=== PATIENT | female | born 1950 | race Asian ===

== ENCOUNTER 2016-04-06 13:09 | Emergency (ER) | payer MEDICARE, OTHER ==
--- NOTE | 2016-04-06 13:17 | ER Document Report ---
ED Medical Screen (RME) - General Stated Complaint: HEAD INJURY Mode of Arrival: Wheelchair Information source: Patient Notes: Patient states she was trying to fix her bed and was standing on it, jumped and fell off of her bed. Pt hit head on a dresser top. No loss of consciousness, no nausea or vomiting. I have greeted and performed a rapid initial assessment of this patient. A comprehensive ED assessment and evaluation of the patient, analysis of test results and completion of the medical decision making process will be conducted by additional ED providers. TRAVEL OUTSIDE OF THE [place] IN LAST 30 DAYS: No Physical Exam - Vital signs Vitals: Temp Pulse Resp BP Pulse Ox 97.6 F 88 16 168/78 H 99 04/06/16 13:12 04/06/16 13:12 04/06/16 13:12 04/06/16 13:12 04/06/16 13:12 - Skin Skin irregularity: Laceration - Clotted blood over right parietal scalp laceration Course - Vital Signs Vital signs: Temp Pulse Resp BP Pulse Ox 97.6 F 88 16 168/78 H 99 04/06/16 13:12 04/06/16 13:12 04/06/16 13:12 04/06/16 13:12 04/06/16 13:12
[2016-04-06] MEDS ORDERED: LIDOCAINE 1% INJ-PF (10 MG/ML) 30 ML SDV INJ ONE (16:10)
[2016-04-06] MEDS ORDERED: ACETAMINOPHEN 325 MG TABLET PO ONE (16:11)
[2016-04-06] MEDS ORDERED: ONDANSETRON HCL 8 MG TABLET PO ONE (16:11)
[2016-04-06] MEDS ORDERED: DIPH/PERTUSS(ACELL)/TETANUS VAC/PF 0.5 ML SYR (>=10YO) IM ONE (16:21)
--- NOTE | 2016-04-06 17:07 | ER Document Report ---
ED Wound - General Chief Complaint: Laceration Stated Complaint: HEAD INJURY Mode of Arrival: Wheelchair Notes: Patient is a 65-year-old female who is new onset early Alzheimer's who was making the bed and she states she hit her head on a dresser.. She denies any loss of consciousness, emesis and only now admits to headache. This was an unwitnessed event however. Otherwise her states she has a history of diabetes and high blood pressure. She does have a cut on the back of her head. TRAVEL OUTSIDE OF THE [place] IN LAST 30 DAYS: No - Related Data Allergies/Adverse Reactions: No Known Allergies Allergy (Verified 04/06/16 13:14) Past Medical History - General Information source: Patient - Social History Smoking Status: Unknown if Ever Smoked Chew tobacco use (# tins/day): No Frequency of alcohol use: None Drug Abuse: None Family History: Reviewed & Not Pertinent Patient has suicidal ideation: No Patient has homicidal ideation: No Renal/ Medical History: Denies: Hx Peritoneal Dialysis - Immunizations Hx Diphtheria, Pertussis, Tetanus Vaccination: Yes Review of Systems - Review of Systems Constitutional: No symptoms reported EENT: No symptoms reported Cardiovascular: No symptoms reported Respiratory: No symptoms reported Gastrointestinal: No symptoms reported Genitourinary: No symptoms reported Female Genitourinary: No symptoms reported Musculoskeletal: No symptoms reported Skin: See HPI Hematologic/Lymphatic: No symptoms reported Neurological/Psychological: See HPI Physical Exam - Vital signs Vitals: Temp Pulse Resp BP Pulse Ox 97.6 F 88 16 168/78 H 99 04/06/16 13:12 04/06/16 13:12 04/06/16 13:12 04/06/16 13:12 04/06/16 13:12 - General General appearance: Appears well In distress: None - HEENT Head: Normocephalic, Open wounds - 5cm deep lac, linear Eyes: Normal Conjunctiva: Normal Extraocular movements intact: Yes Pupils: PERRL Neck: Normal - Respiratory Respiratory status: No respiratory distress Chest status: Nontender Breath sounds: Normal Chest palpation: Normal - Cardiovascular Rhythm: Regular Heart sounds: Normal auscultation Pulses: Normal: Radial, Dorsalis pedis Normal capillary refill: Yes - Extremities General upper extremity: Normal inspection, Nontender, Normal color, Normal ROM , Normal strength, Normal temperature General lower extremity: Normal inspection, Nontender, Normal color, Normal ROM , Normal strength, Normal temperature, Normal weight bearing - Neurological Neuro grossly intact: Yes Cognition: Normal Orientation: AAOx4 April Coma Scale Eye Opening: Spontaneous Clyde Coma Scale Verbal: Oriented April Coma Scale Motor: Obeys Commands Clyde Coma Scale Total: 15 Motor strength normal: LUE, RUE, LLE, RLE Sensory: Normal - Skin Skin Temperature: Warm Skin Moisture: Dry Skin Color: Normal Skin Turgor: Elastic Skin irregularity: Laceration Location of irregularity: Scalp Character of irregularity: Linear Irregularity with: Tenderness Course - Re-evaluation Re-evalutation: 04/06/16 17:04 Patient is a 65-year-old female with early onset Alzheimer's. Unwitnessed head injury at the house today she denies any loss of consciousness. states that she did come him as soon as she had her head and they came to emergency department she's been her normal self. CT of the head does not show any fracture or bleed. Patient is otherwise alert and oriented. Lack was closed with 4 vicky can be taken up by PCP. - Vital Signs Vital signs: Temp Pulse Resp BP Pulse Ox 97.6 F 88 16 168/78 H 99 04/06/16 13:12 04/06/16 13:12 04/06/16 13:12 04/06/16 13:12 04/06/16 13:12 - Diagnostic Test Radiology reviewed: Image reviewed, Reports reviewed Procedures - Laceration/Wound Repair Head Wound length (cm): 5 Wound's Depth, Shape: Superficial, Linear Laceration pre-procedure: Sterile PPE donned, Betadine prep applied Wound explored: Clean, No foreign body removed Irrigated w/ Saline (mLs): 20 Wound Debrided: Minimal Wound Repaired With: Vicky Number of Sutures: 4 Layer Closure?: No Complications: No Discharge - Discharge Clinical Impression: Head injury Qualifiers: Encounter type: initial encounter Qualified Code(s): S09.90XA - Unspecified injury of head, initial encounter Condition: Good Disposition: HOME, SELF-CARE Instructions: Soap Cleansing ([facility]), Tetanus Immunization Given ([facility]), Prophylactic Antibiotic ([facility]), Laceration Care ([facility]) Additional Instructions: You need to follow up with your physician in -10 for staple removal Prescriptions: Cephalexin Monohydrate [Keflex 500 mg Capsule] 500 mg PO BID 7 Days Forms: Elevated Blood Pressure
[2016-04-06] MEDS ORDERED: CEPHALEXIN 500 MG CAPSULE PO ONE (17:10)
[2016-04-06 17:17] VITALS: BP 150/78
== END 2016-04-06 17:17 | disposition home or self-care (01) ==
LOC: ER 13:09
PROC: 0HQ0XZZ Repair Scalp Skin, External Approach (ICD-10-PCS; principal; 2016-04-06)
DX: S01.01XA Laceration without foreign body of scalp, initial encounter (principal); W22.03XA Walked into furniture, initial encounter; Y93.E9 Activity, other interior property and clothing maintenance; Y92.003 Bedroom of unspecified non-institutional (private) residence as the place of occurrence of the external cause; R51 Headache; E11.9 Type 2 diabetes mellitus without complications; I10 Essential (primary) hypertension; G30.0 Alzheimer's disease with early onset; F02.80 Dementia in other diseases classified elsewhere, unspecified severity, without behavioral disturbance, psychotic disturbance, mood disturbance, and anxiety
CPT/HCPCS: 99283; 90471; 70450; 90715; 12002; A9270 ×3; J3490; S0119

== ENCOUNTER 2017-01-16 03:38 | Emergency (ER) | payer MEDICARE, OTHER ==
--- NOTE | 2017-01-16 04:22 | ER Document Report ---
ED General - General Chief Complaint: Fall Injury Stated Complaint: FALL/HEAD INJURY Time Seen by Provider: 01/16/17 04:09 TRAVEL OUTSIDE OF THE [place] IN LAST 30 DAYS: No - HPI Notes: Pt is a 66yo female who presents to the ED with a scalp laceration s/p fall while at home about 1 hour ago. Pt states that she was walking to the kitchen when she lost her balance and fell backwards hitting her head. Pt believes that she hit her head off of the floor, but could have hit something on the wall on her way down. Pt does not believe she had any LOC, but is not 100% sure and it was unwitnessed. Pt does have a h/o ?alzheimer's vs other dementia- related disease. She also has a h/o DM-2 (diet controlled) and HTN. Spouse states that she came to him and woke him up thereafter. Spouse states that she has been unsteady with her gait for a "while" and has been seeing her PCM for this issue. They are getting a referral to see a neurologist in [place] currently. Pt has been evaluated for vertigo as well by her PCM this week. Pt states that she only has pain to the site of the laceration and otherwise feels well. No other pain. Spouse notes that she is at baseline for her mentation, speech, behavior, and gait. Denies any fever, neck pain, changes in vision/ speech/mentation/hearing, URI, sore throat, chest pain, palpitations, syncope, cough, shortness of breath, wheeze, dyspnea, abdominal pain, nausea/vomiting/ diarrhea, urinary retention, dysuria, hematuria, loss of control of bowel or bladder, numbness/tingling, saddle anesthesia, muscle paralysis/weakness, or rash. tetanus utd. - Related Data Allergies/Adverse Reactions: No Known Allergies Allergy (Verified 01/16/17 04:28) Past Medical History - Social History Smoking Status: Never Smoker Family History: Reviewed & Not Pertinent Renal/ Medical History: Denies: Hx Peritoneal Dialysis - Immunizations Hx Diphtheria, Pertussis, Tetanus Vaccination: Yes Review of Systems - Review of Systems Notes: REVIEW OF SYSTEMS: CONSTITUTIONAL : Denies fever, chills, or sweats. Denies recent illness. EENT: Denies eye, ear, throat, or mouth pain or symptoms. Denies nasal or sinus congestion or discharge. Denies throat, tongue, or mouth swelling or difficulty swallowing. CARDIOVASCULAR: Denies chest pain. Denies palpitations or racing or irregular heart beat. Denies ankle edema. RESPIRATORY: Denies cough, cold, or chest congestion. Denies shortness of breath, difficulty breathing, or wheezing. GASTROINTESTINAL: Denies abdominal pain or distention. Denies nausea, vomiting , or diarrhea. GENITOURINARY: Denies difficulty urinating, painful urination, burning, frequency, blood in urine, or discharge. MUSCULOSKELETAL: Denies back or neck pain or stiffness. Denies joint pain or swelling. SKIN: Denies rash, lesions or sores. NEUROLOGICAL: see hpi. Denies weakness or paralysis or loss of use of either side. Denies sensory loss, numbness, or tingling. Denies seizures. PSYCHIATRIC: Denies anxiety or stress. Denies depression, suicidal ideation, or homicidal ideation. ALL OTHER SYSTEMS REVIEWED AND NEGATIVE. Dictation was performed using [employer] voice recognition software Physical Exam - Vital signs Vitals: Temp Pulse Resp BP Pulse Ox 99.1 F 97 16 164/100 H 99 01/16/17 03:51 01/16/17 03:51 01/16/17 03:51 01/16/17 03:51 01/16/17 03:51 Notes: PHYSICAL EXAMINATION: GENERAL: Well-appearing, well-nourished and in no acute distress. A&Ox4 HEAD: There is a 0.5cm scalp laceration to the rt superior occipital area. Bleeding controlled. EYES: Pupils equal round and reactive to light, extraocular movements intact, sclera anicteric, conjunctiva are normal. No raccoon eyes/entrapment ENT: EAC clear b/l. TM's intact b/l without erythema, fluid, or perforation. Nares patent and without discharge. oropharynx clear without exudates. No tonsilar hypertrophy or erythema. Moist mucous membranes. No sinus tenderness. No hemotympanum/CSF discharge. NECK: Normal range of motion, supple without lymphadenopathy. No rigidity. No midline tenderness. Spurling negative. NEXUS negative. Chest: No flail chest. equal rise/fall. Non-tender LUNGS: Breath sounds clear to auscultation bilaterally and equal. No wheezes rales or rhonchi. HEART: Regular rate and rhythm without murmurs, rubs, gallops. ABDOMEN: Soft, nontender, nondistended abdomen. No guarding, no rebound. No masses appreciated. Normal bowel sounds present. No CVA tenderness bilaterally. Musculoskeletal: Ext b/l: FROM to passive/active. Strength 5+/5. No deficits noted. No bony tenderness of extremities. Back: FROM to passive/active. Strength 5+/5. No vertebral point tenderness, stepoffs, or deformities. No other bony tenderness or ecchymosis. SLR negative b/l. Extremities: No cyanosis, clubbing, or edema b/l. Peripheral pulses 2+. Capillary refill less than 2 seconds. NEUROLOGICAL: NIH 0. MMSE intact. Cranial nerves grossly intact. Normal speech, ataxic/unsteady gait. Normal sensory, motor exams. Reflexes 2+ b/l. HAWA's negative. Pronator drift negative. PSYCH: Normal mood, normal affect. SKIN: Warm, Dry, normal turgor, no rashes or lesions noted. Course - Re-evaluation Re-evalutation: 01/16/17 05:19 Patient is an afebrile, well-hydrated, 66-year-old female who presents ED with a scalp laceration status post fall. Vitals are stable. PE is markable for any focal neurological deficits. Accucheck was 177. Head CT was negative. MMSE intact. NIH 0. Wound was thoroughly irrigated and cleansed. 2 vicky were placed and wound edges were approximated appropriately. Wound dressing placed and wound instructions were reviewed with the pt/spouse. Conservative measures otherwise for symptoms with close monitoring. Low suspicion for any acute glaucoma, temporal arteritis, meningitis, intracranial hemorrhage, ischemic stroke, or fracture at this time. Patient/spouse are aware that her condition can change from initial presentation and that they need to monitor symptoms closely for any acute changes. Recheck with your PCM in 3-5 days. Return to the ED with any worsening/concerning symptoms otherwise as reviewed in discharge. Patient/spouse are in agreement. - Vital Signs Vital signs: Temp Pulse Resp BP Pulse Ox 99.1 F 81 16 148/82 H 100 01/16/17 03:51 01/16/17 05:14 01/16/17 05:14 01/16/17 05:14 01/16/17 05:14 - Laboratory Laboratory results interpreted by me: 01/16/17 04:14 POC Glucose 177 H Procedures - Laceration/Wound Repair Left Head Time completed: 04:50 Wound length (cm): 1.7 Wound's Depth, Shape: Superficial, Linear. No: Into muscle, Irregular, Flap Laceration pre-procedure: Sterile PPE donned, Sterile drapes applied, Other - chlorhexadine Wound explored: Clean, No foreign body removed Irrigated w/ Saline (mLs): 60 Wound Debrided: none Wound Repaired With: Vicky Number of Sutures: 2 Layer Closure?: No Post-procedure wound care: Sterile dressing applied Post-procedure NV exam normal: Yes Complications: No Discharge - Discharge Clinical Impression: Scalp laceration Qualifiers: Encounter type: initial encounter Qualified Code(s): S01.01XA - Laceration without foreign body of scalp, initial encounter Condition: Stable Disposition: HOME, SELF-CARE Instructions: Antibiotic Ointment Protection ([facility]), Laceration Care ([facility]), Soap Cleansing ([facility]) Additional Instructions: Do not shower or bathe for 24 hours. After 24 hours you may shower but no submersion of the wound under water. You may apply a non-stick gauze dressing if needed if the wound is draining. You may leave open to the air if it is not draining. See your PCM in 2-3 days for a recheck. Monitor for any signs of worsening pain or redness, purulent drainage, streaks, and/or fever. Return to the ED if noticing any of the above symptoms or as needed. Take medications as directed. Your sutures will need to be removed in 10 days. Return to the ED with any worsening symptoms and/or development of fever, headache, chest pain, palpitations, syncope, shortness of breath, trouble breathing, abdominal pain, n/v/d, blood in stool/urine, loss of control of bowel /bladder, urinary retention, muscle weakness/paralysis, saddle anesthesia, numbness/tingling, or other worsening symptoms that are concerning to you. Forms: Elevated Blood Pressure Referrals: JUAN LUND MD [Primary Care Provider] - Follow up in 3-5 days
--- NOTE | 2017-01-16 04:48 | RADIOLOGY REPORT (SQ) ---
EXAM DESCRIPTION: CT HEAD WITHOUT COMPLETED DATE/TIME: 01/16/2017 4:25 am REASON FOR STUDY: fall, head injury COMPARISON: CT head 04/06/2016, 12/08/2006. TECHNIQUE: Axial images acquired through the brain without intravenous contrast. Images reviewed wi th bone, brain and subdural windows. Images stored on PACS. All CT scanners at this facility use dose modulation, iterative reconstruction, and/or weight based d osing when appropriate to reduce radiation dose to as low as reasonably achievable (ALARA). [facility]: Dose Right [facility]: CareDose [facility]: Dose Right [facility]: Teradose 4D [facility]: [email or web address] RADIATION DOSE: mGy. LIMITATIONS: There is streak artifact from the patient's dental hardware, orthopedic hardware at the cervical spine and patient's earrings. FINDINGS: VENTRICLES: Prominent. CEREBRUM: No mass effect. No hemorrhage. No midline shift. Areas of low density in the white matte r most likely due to chronic micro-vascular ischemic change. No evidence for acute territorial infar ction. CEREBELLUM: No hemorrhage. No alteration of density. No evidence for acute infarction. EXTRAAXIAL SPACES: Mild age-related involutional change. No fluid collections. ORBITS AND GLOBE: Symmetrical contour of the globes. CALVARIUM: No depressed fracture. PARANASAL SINUSES: No air-fluid level. SOFT TISSUES: No hematoma. IMPRESSION: No acute intracranial hemorrhage or acute territorial infarct. Chronic changes of atrop hy and microvascular ischemia. EVIDENCE OF ACUTE STROKE: NO. TECHNICAL DOCUMENTATION: JOB ID: [id number] [facility] Quality ID # [id number]: Final reports with documentation of one or more dose reduction techniques (e.g., Au tomated exposure control, adjustment of the mA and/or kV according to patient size, use of iterative reconstruction technique) 2010 [employer]- All Rights Reserved
[2017-01-16] MEDS ORDERED: ACETAMINOPHEN 325 MG TABLET PO ONE (04:55)
[2017-01-16 05:15] VITALS: BP 148/82
== END 2017-01-16 05:15 | disposition home or self-care (01) ==
LOC: ER 03:38
DX: S01.01XA Laceration without foreign body of scalp, initial encounter (principal); W19.XXXA Unspecified fall, initial encounter; Y93.89 Activity, other specified; Y92.009 Unspecified place in unspecified non-institutional (private) residence as the place of occurrence of the external cause; R26.81 Unsteadiness on feet; E11.9 Type 2 diabetes mellitus without complications; I10 Essential (primary) hypertension
CPT/HCPCS: 70450; 82962; 99284

== ENCOUNTER 2017-01-19 18:02 | Emergency (ER) | payer MEDICARE, OTHER ==
--- NOTE | 2017-01-19 19:42 | ER Document Report ---
ED Medical Screen (RME) - General Chief Complaint: Head Injury Stated Complaint: FALL HEAD INJURY Time Seen by Provider: 01/19/17 19:35 Notes: 66 year old female here for dizziness and fall. She fell [employer], fell back and hit her head on a vaccum shield cleaner. Family states she has had progressive confusion for 1 year, worse over the past week, and now she is giving confused statements about her fall. She follows directions but when asked where she is right now she states she doesn't know. No blood thinner use. Had many recent falls. Family states she seems more dizzy than usual, is not responding to treatments, and they are frustrated with her decline. TRAVEL OUTSIDE OF THE [place] IN LAST 30 DAYS: No - Related Data Allergies/Adverse Reactions: No Known Allergies Allergy (Verified 01/19/17 19:38) Past Medical History Renal/ Medical History: Denies: Hx Peritoneal Dialysis - Immunizations Hx Diphtheria, Pertussis, Tetanus Vaccination: Yes Physical Exam - Vital signs Vitals: Temp Pulse Resp BP Pulse Ox 98.0 F 89 15 156/61 H 100 01/19/17 18:17 01/19/17 18:17 01/19/17 18:17 01/19/17 18:17 01/19/17 18:17 - General General appearance: Other - re-bleeding vicky in right lateral parietal scalp ; no other wounds noted - Back Back: Nontender. No: Tender, Vertebra tenderness Course - Re-evaluation Re-evalutation: Family asking for basic workup. Will need to scan head because of injury, age, and uncertain mental status with head injury. - Vital Signs Vital signs: Temp Pulse Resp BP Pulse Ox 98.0 F 89 15 156/61 H 100 01/19/17 18:17 01/19/17 18:17 01/19/17 18:17 01/19/17 18:17 01/19/17 18:17
--- NOTE | 2017-01-19 21:00 | RADIOLOGY REPORT (SQ) ---
EXAM DESCRIPTION: CT HEAD WITHOUT COMPLETED DATE/TIME: 01/19/2017 8:31 pm REASON FOR STUDY: fall, head injury, confusion COMPARISON: 01/16/2017 TECHNIQUE: Axial images acquired through the brain without intravenous contrast. Images reviewed wi th bone, brain and subdural windows. Images stored on PACS. All CT scanners at this facility use dose modulation, iterative reconstruction, and/or weight based d osing when appropriate to reduce radiation dose to as low as reasonably achievable (ALARA). [facility]: Dose Right [facility]: CareDose [facility]: Dose Right [facility]: Teradose 4D [facility]: [employer] RADIATION DOSE: mGy. LIMITATIONS: None. FINDINGS: VENTRICLES: Prominent. CEREBRUM: No masses. No hemorrhage. No midline shift. Areas of low density in the white matter mos t likely due to chronic micro-vascular ischemic change. No evidence for acute infarction. CEREBELLUM: No masses. No hemorrhage. No alteration of density. No evidence for acute infarction. EXTRAAXIAL SPACES: Mild age-related involutional change. No fluid collections. No masses. ORBITS AND GLOBE: No intra- or extraconal masses. Normal contour of globe without masses. CALVARIUM: No fracture. PARANASAL SINUSES: No fluid or mucosal thickening. SOFT TISSUES: Skin sutures are identified in the right posterior parietal region over the convexity. OTHER: No other significant finding. IMPRESSION: MILD CHRONIC CHANGES OF ATROPHY AND MICROVASCULAR ISCHEMIA. NO ACUTE PROCESS. EVIDENCE OF ACUTE STROKE: NO. TECHNICAL DOCUMENTATION: JOB ID: [id number] Quality ID # [id number]: Final reports with documentation of one or more dose reduction techniques (e.g., Au tomated exposure control, adjustment of the mA and/or kV according to patient size, use of iterative reconstruction technique) 2010 [employer]- All Rights Reserved
[2017-01-19 21:30] LABS: ABSOLUTE MONOCYTES (AUTO) 0.5 10^3/uL (0.1-1.4); ABSOLUTE NEUT (AUTO) 8.2 10^3/uL (1.7-8.2); BASOPHILS % (AUTO) 0.4 % (0-2); EOSINOPHILS % (AUTO) 0.4 % (0-6); HEMATOCRIT 33.4 % (36.0-47.0); HEMOGLOBIN 11.5 g/dL (12.0-15.5); HGB HCT DIFFERENCE 1.1; LYMPHOCYTES % (AUTO) 18.4 % (13-45); MEAN CORPUSCULAR HEMOGLOBIN 29.9 pg (27.0-33.4); MEAN CORPUSCULAR HGB CONC 34.3 g/dL (32.0-36.0); MEAN CORPUSCULAR VOLUME 87 fl (80-97); MONOCYTES % (AUTO) 4.7 % (3-13); RED BLOOD COUNT 3.83 10^6/uL (3.72-5.28); RED CELL DISTRIBUTION WIDTH 12.7 % (11.5-14.0); SEGMENTED NEUTROPHILS % (AUTO) 76.1 % (42-78); WHITE BLOOD COUNT 10.8 10^3/uL (4.0-10.5)
[2017-01-19 21:35] LABS: APPEARANCE,URINE CLEAR; BILIRUBIN,URINE NEGATIVE (NEGATIVE); GLUCOSE, URINE 150 mg/dL (NEGATIVE); KETONES,URINE NEGATIVE (NEGATIVE); LEUKOCYTE ESTERASE,URINE MODERATE (NEGATIVE); NITRITE,URINE NEGATIVE (NEGATIVE); PROTEIN,URINE 30 mg/dL (NEGATIVE); URINE SPECIFIC GRAVITY 1.012; UROBILINOGEN,URINE NEGATIVE mg/dL (<2.0)
--- NOTE | 2017-01-19 21:47 | EKG REPORT ---
SEVERITY:- ABNORMAL ECG - SINUS RHYTHM APCs BORDERLINE T ABNORMALITIES, ANT-LAT LEADS : Confirmed by: Viktor Fajardo 19-Jan-2017 21:47:14
[2017-01-19 21:54] LABS: ANION GAP 13 (5-19); BLOOD UREA NITROGEN 19 mg/dL (7-20); CALCIUM 9.5 mg/dL (8.4-10.2); CARBON DIOXIDE 28 mmol/L (22-30); CHLORIDE 100 mmol/L (98-107); CREATININE RESULT 0.77 mg/dL (0.52-1.25); GLUCOSE 162 mg/dL (75-110); POTASSIUM 3.8 mmol/L (3.6-5.0); SODIUM 141.2 mmol/L (137-145)
--- NOTE | 2017-01-20 00:55 | ER Document Report ---
ED General - General Chief Complaint: Head Injury Stated Complaint: FALL HEAD INJURY Time Seen by Provider: 01/19/17 19:35 Cannot obtain history due to: Dementia Notes: Patient is a 66-year-old with a past medical history of rapidly progressing cognitive impairment, confusion, and gait instability who presents after having another witnessed fall. Patient apparently fell and struck her head. She began bleeding from an area of a scalp laceration that was repaired just 2 days ago from another fall. The patient himself is unable to provide any meaningful history. at the bedside states that this is become a progressively worsening problem over the last several months particularly worse in the past several weeks. He notes that she does not appear to have injured herself in any other location. She has not had any vomiting or change in her behavior since the fall. She does not take anticoagulation TRAVEL OUTSIDE OF THE [place] IN LAST 30 DAYS: No - Related Data Allergies/Adverse Reactions: No Known Allergies Allergy (Verified 01/19/17 19:38) Past Medical History - General Information source: Relative - Social History Smoking Status: Never Smoker Chew tobacco use (# tins/day): No Frequency of alcohol use: None Drug Abuse: None Lives with: Spouse/Significant other Family History: Reviewed & Not Pertinent Patient has suicidal ideation: No Patient has homicidal ideation: No Renal/ Medical History: Denies: Hx Peritoneal Dialysis - Immunizations Hx Diphtheria, Pertussis, Tetanus Vaccination: Yes Review of Systems - Review of Systems -: Yes ROS unobtainable due to patient's medical condition Physical Exam - Vital signs Vitals: Temp Pulse Resp BP Pulse Ox 98.0 F 89 15 156/61 H 100 01/19/17 18:17 01/19/17 18:17 01/19/17 18:17 01/19/17 18:17 01/19/17 18:17 Interpretation: Hypertensive Notes: PHYSICAL EXAMINATION: GENERAL: Somewhat agitated, oriented only to person HEAD: There is a 3 cm mid scalp laceration that remains well applied with vicky in place. A small amount of bleeding is active in between the skin flaps. EYES: Pupils equal round and reactive to light sclera anicteric, conjunctiva are normal. ENT: nares patent, no oral pharyngeal trauma. No hemotympanum, no Rob's sign , no raccoon eyes. NECK: No midline cervical spine tenderness. Patient able to move their head to 45 bilaterally. LUNGS: Breath sounds clear to auscultation bilaterally and equal. No wheezes rales or rhonchi. HEART: Regular rate and rhythm without murmurs. CHEST WALL: No ecchymosis over the chest wall. ABDOMEN: Soft, nontender, normoactive bowel sounds. No guarding, no rebound. No abdominal bruising EXTREMITIES: Normal range of motion, no pitting or edema. No long bone deformities. BACK: No midline spinal tenderness, step-offs, or deformities. NEUROLOGICAL: Moves all extremities spontaneously but does not follow commands PSYCH: Oriented only to person. SKIN: Warm, Dry, normal turgor, laceration as above Course - Re-evaluation Re-evalutation: 01/20/17 00:52 Presentation of a well appearing elderly patient in no acute distress, vitals within normal limits after a mechanical fall. Patient appears to have a progressive neurodegenerative disorder, likely advanced dementia. no focal neurologic deficits on exam, no evidence of basilar skull fracture on exam without evidence of hemotympanum, raccoon eyes, or periauricular hematoma. No papilledema. Patient is not on anticoagulation. GCS is 15. No loss of consciousness. No episodes of vomiting. However, based on patient's age a CT of the head has been obtained which is negative for any acute intracranial bleed. Vicky placed from her prior visit with a scalp laceration are in place. A clot that formed over the area of laceration was removed and there is no evidence of wound dehiscence or separation. Patient has no focal deformities or limited range of motion in any joint space. Chest and abdominal exam are benign without any focal tenderness, shortness of breath, or bruising over the chest or abdominal wall. Patient has no flank tenderness. There is no obvious findings on trauma exam today and therefore no further imaging or evaluation will be obtained at this time. I have discussed this at length with the at the bedside and we agree the patient likely needs to be admitted to an inpatient memory care unit as she is no longer safe at home. He will discuss with his primary care physician in the morning to begin this process. Patient is also following with [place] [facility] for further evaluation of her rapid cognitive and motor decline. - Vital Signs Vital signs: Temp Pulse Resp BP Pulse Ox 98.5 F 78 20 165/78 H 98 01/19/17 23:56 01/20/17 01:41 01/20/17 01:41 01/20/17 01:41 01/20/17 01:41 - Laboratory Result Diagrams: 01/19/17 21:01 01/19/17 21:01 Laboratory results interpreted by me: 01/19/17 01/19/17 01/19/17 21:01 21:01 21:01 WBC 10.8 H Hgb 11.5 L Hct 33.4 L Glucose 162 H Urine Protein 30 H Urine Glucose (UA) 150 H Ur Leukocyte Esterase MODERATE H - Diagnostic Test Radiology reviewed: Image reviewed, Reports reviewed Radiology results interpreted by me: 01/20/17 00:54 CT head: No acute intracranial bleed Discharge - Discharge Clinical Impression: Head trauma Qualifiers: Encounter type: initial encounter Qualified Code(s): S09.90XA - Unspecified injury of head, initial encounter Fall Qualifiers: Encounter type: initial encounter Qualified Code(s): W19.XXXA - Unspecified fall, initial encounter Condition: Stable Disposition: HOME, SELF-CARE Additional Instructions: The head CT and labs are normal today. The scalp laceration was cleaned and does not show any separation from the prior vicky. Please follow-up with your primary care doctor regarding placement in a memory care unit as well as neurology as scheduled for further evaluation of the source of her rapid decline. Referrals: JUAN LUND MD [Primary Care Provider] - Follow up as needed
[2017-01-20 01:43] VITALS: BP 165/78
== END 2017-01-20 01:42 | disposition home or self-care (01) ==
LOC: ER 18:02
DX: S09.90XA Unspecified injury of head, initial encounter (principal); S01.01XA Laceration without foreign body of scalp, initial encounter; W19.XXXA Unspecified fall, initial encounter
CPT/HCPCS: 36415; 70450; 80048; 81001; 85025; 93005; 93010; 99284

== ENCOUNTER 2017-01-25 13:02 | Emergency (ER) | payer MEDICARE, OTHER ==
[2017-01-25] MEDS ORDERED: NORMAL SALINE 1000 ML 1,000 ML IV ONE (13:26)
[2017-01-25] MEDS ORDERED: NORMAL SALINE 1000 ML 1,000 ML IV PRN (13:26)
--- NOTE | 2017-01-25 13:46 | ER Document Report ---
ED Dizziness/Weakness - General Stated Complaint: FALL HEAD INJURY Time Seen by Provider: 01/25/17 13:13 Notes: 66 years old female who had multiple falls for the last 6 months, recently 14 days ago had a fall and then again checked for 2 days later she was seen in the ER had a CT of the brain which was negative. She is currently being evaluated by her primary care physician and neurology for the reason of multiple fall. She is a known diabetic 2. She also consumes medications which are homeopathic. Difficult to get history . One week ago she fell again. Since then she was acting different, staggering in gait, word salad not comprehensible repeating the same but again. Therefore she was brought to the ED. No history of any constitutional symptoms TRAVEL OUTSIDE OF THE [place] IN LAST 30 DAYS: No - Related Data Allergies/Adverse Reactions: No Known Allergies Allergy (Verified 01/19/17 19:38) Past Medical History - Social History Smoking Status: Never Smoker Family History: Reviewed & Not Pertinent Renal/ Medical History: Denies: Hx Peritoneal Dialysis Psychiatric Medical History: Reports: Hx Depression - Immunizations Hx Diphtheria, Pertussis, Tetanus Vaccination: Yes Review of Systems - Review of Systems -: Yes ROS unobtainable due to patient's medical condition Physical Exam - Vital signs Vitals: Pulse 86 01/25/17 13:05 - Notes Notes: PHYSICAL EXAMINATION: GENERAL: Cachectic, dysarthric, confused look HEAD: Multiple small contusions and laceration old, normocephalic. EYES: Pupils equal round and reactive to light, extraocular movements intact, conjunctiva are normal. ENT: Nares patent, oropharynx clear without exudates. Moist mucous membranes. NECK: Normal range of motion, supple without lymphadenopathy LUNGS: Breath sounds clear to auscultation bilaterally and equal. No wheezes rales or rhonchi. HEART: Regular rate and rhythm without murmurs ABDOMEN: Soft, nontender, nondistended abdomen. No guarding, no rebound. No masses appreciated. Female : deferred Musculoskeletal: Normal range of motion, no pitting or edema. No cyanosis. NEUROLOGICAL: Alert but not oriented, dysarthric, confabulation, no obvious facial weakness noted, no pronator drift, no focal weakness over the lower extremity noted. PSYCH: Normal mood, normal affect. SKIN: Warm, Dry, normal turgor, no rashes or lesions noted. Cachectic dysarthric Course - Re-evaluation Re-evalutation: 01/25/17 14:47 Radiology report came back as intracranial bleed infarction over the right temporoparietal parietal region [facility] was contacted discussed with Dr. Neff, arrangements are made to transfer. - Vital Signs Vital signs: Temp Pulse Resp BP Pulse Ox 86 01/25/17 13:05 - Laboratory Result Diagrams: 01/25/17 13:35 01/25/17 13:35 Laboratory results interpreted by me: 01/25/17 01/25/17 13:35 13:35 Hgb 11.8 L Hct 34.3 L Potassium 3.5 L BUN 25 H Glucose 238 H - Diagnostic Test Radiology results interpreted by me: 01/25/17 14:48 Radiology report reviewed Critical Care Note - Critical Care Note Total time excluding time spent on procedures (mins): 45 Comments: Intracranial bleed was managed, transfer arranged, discussed with specialist in [facility]. Transfer to neurosurgery. Accepting doctor Dr. Neff. Discharge - Discharge Clinical Impression: Intracranial hemorrhage after injury without loss of consciousness Qualifiers: Encounter type: initial encounter Qualified Code(s): S06.300A - Unspecified focal traumatic brain injury without loss of consciousness, initial encounter Cerebral infarct Qualifiers: Cerebral infarction mechanism: unspecified mechanism Qualified Code(s): I63.9 - Cerebral infarction, unspecified Disposition: [facility]
[2017-01-25 14:01] LABS: ABSOLUTE EOSINOPHILS # (AUTO) 0.1 10^3/uL (0.0-0.6); ABSOLUTE LYMPHOCYTES (AUTO) 2.6 10^3/uL (0.5-4.7); ABSOLUTE MONOCYTES (AUTO) 0.6 10^3/uL (0.1-1.4); ABSOLUTE NEUT (AUTO) 4.4 10^3/uL (1.7-8.2); BASOPHILS % (AUTO) 0.6 % (0-2); EOSINOPHILS % (AUTO) 1.1 % (0-6); HEMATOCRIT 34.3 % (36.0-47.0); HEMOGLOBIN 11.8 g/dL (12.0-15.5); LYMPHOCYTES % (AUTO) 33.6 % (13-45); MEAN CORPUSCULAR HEMOGLOBIN 29.9 pg (27.0-33.4); MEAN CORPUSCULAR HGB CONC 34.6 g/dL (32.0-36.0); MEAN CORPUSCULAR VOLUME 87 fl (80-97); MONOCYTES % (AUTO) 7.6 % (3-13); PLATELET COUNT 365 10^3/uL (150-450); RED BLOOD COUNT 3.96 10^6/uL (3.72-5.28); RED CELL DISTRIBUTION WIDTH 12.8 % (11.5-14.0); SEGMENTED NEUTROPHILS % (AUTO) 57.1 % (42-78); TOTAL CELLS COUNTED % (AUTO) 100 %; WHITE BLOOD COUNT 7.7 10^3/uL (4.0-10.5)
--- NOTE | 2017-01-25 14:09 | RADIOLOGY REPORT (SQ) ---
EXAM DESCRIPTION: CT HEAD WITHOUT COMPLETED DATE/TIME: 01/25/2017 1:54 pm REASON FOR STUDY: Dizziness COMPARISON: 01/19/2017 TECHNIQUE: Axial images acquired through the brain without intravenous contrast. Images reviewed wi th bone, brain and subdural windows. Images stored on PACS. All CT scanners at this facility use dose modulation, iterative reconstruction, and/or weight based d osing when appropriate to reduce radiation dose to as low as reasonably achievable (ALARA). [facility]: Dose Right [facility]: CareDose [facility]: Dose Right [facility]: Teradose 4D [facility]: [employer] RADIATION DOSE: mGy. LIMITATIONS: None. FINDINGS: VENTRICLES: Normal size and contour. CEREBRUM: Interval development of low density in the right temporoparietal lobe posteriorly. There i s also an associated hemorrhage. No mass effect or midline shift. Normal flores-white differentiation. CEREBELLUM: No masses. No hemorrhage. No alteration of density. No evidence for acute infarction. EXTRAAXIAL SPACES: No fluid collections. No masses. ORBITS AND GLOBE: No intra- or extraconal masses. Normal contour of globe without masses. CALVARIUM: No fracture. PARANASAL SINUSES: No fluid or mucosal thickening. SOFT TISSUES: No mass or hematoma. OTHER: No other significant finding. IMPRESSION: Interval infarct right temporoparietal and associated punctate hemorrhage within and adj acent to the infarct. No significant mass effect. EVIDENCE OF ACUTE STROKE: Yes RIGHT MCA COMMENT: Pertinent findings on the imaging study reported as a CRITICAL RESULT to VERITO COELHO MD at14:03 on 01/25/2017. Category of Critical Result: Intracranial hemorrhage Quality ID # [id number]: Final reports with documentation of one or more dose reduction techniques (e.g., Au tomated exposure control, adjustment of the mA and/or kV according to patient size, use of iterative reconstruction technique) TECHNICAL DOCUMENTATION: JOB ID: [id number] [employer]- All Rights Reserved
[2017-01-25 14:16] LABS: ALANINE AMINOTRANSFERASE 49 U/L (9-52); ALBUMIN 3.8 g/dL (3.5-5.0); ALKALINE PHOSPHATASE 117 U/L (38-126); ANION GAP 12 (5-19); ASPARTATE AMINO TRANSFERASE 30 U/L (14-36); BILIRUBIN,DIRECT 0.4 mg/dL (0.0-0.4); BILIRUBIN,TOTAL 0.5 mg/dL (0.2-1.3); BLOOD UREA NITROGEN 25 mg/dL (7-20); CALCIUM 9.3 mg/dL (8.4-10.2); CARBON DIOXIDE 29 mmol/L (22-30); CHLORIDE 98 mmol/L (98-107); GLUCOSE 238 mg/dL (75-110); POTASSIUM 3.5 mmol/L (3.6-5.0); SODIUM 139.2 mmol/L (137-145); TOTAL PROTEIN 6.6 g/dL (6.3-8.2)
[2017-01-25] MEDS ORDERED: CLONIDINE HCL 0.2 MG TABLET PO ONE (15:15)
[2017-01-25 17:03] LABS: INTERNATIONAL RATION (INR) 0.97; PARTIAL THROMBOPLASTIN TIME 31.5 SEC (23.5-35.8); PROTHROMBIN TIME 13.6 SEC (11.4-15.4)
[2017-01-25 18:17] VITALS: BP 135/77
== END 2017-01-25 18:17 | disposition short-term general hospital (02) ==
LOC: ER 13:02
DX: S06.300A Unspecified focal traumatic brain injury without loss of consciousness, initial encounter (principal); I63.9 Cerebral infarction, unspecified; W19.XXXA Unspecified fall, initial encounter; Z91.81 History of falling
CPT/HCPCS: 99291; 96360; 96361; 36415; 85025; 85610; 85730; 80053; 70450; A9270; J7030

== ENCOUNTER 2017-02-16 05:09 | Emergency (ER) | payer MEDICARE, OTHER ==
--- NOTE | 2017-02-16 05:38 | RADIOLOGY REPORT (SQ) ---
EXAM DESCRIPTION: CT HEAD WITHOUT CLINICAL HISTORY: fall, head injury COMPARISON: None available TECHNIQUE: Axial CT of the head obtained from the skull apex to the skull base without contrast. FINDINGS: No acute intracranial hemorrhage identified. No mass, mass effect, shift of the midline, abnormal extra-axial fluid collection or CT evidence of acute ischemic change identified. The ventricular system and sulcal spaces are mildly enlarged compatible with mild cerebral atrophy. Scattered areas of hypodensity throughout the supratentorial white matter are nonspecific and may be related to chronic small vessel ischemic change. The visualized paranasal sinuses and the mastoids are clear. No skull fracture identified. Visualized orbits and globes are unremarkable. Atherosclerotic calcification of the intracranial internal carotid arteries. Postoperative change of the visualized cervical spine. DLP:01/25/2017 mGy-cm IMPRESSION: 1. No acute intracranial abnormality by CT criteria. This exam was performed according to our departmental dose-optimization program, which includes automated exposure control, adjustment of the mA and/or kV according to patient size and/or use of iterative reconstruction technique.
--- NOTE | 2017-02-16 05:45 | ER Document Report ---
ED Head/Face/Scalp Injury - General Chief Complaint: Head Injury without LOC Stated Complaint: FALL, HEAD PAIN Time Seen by Provider: 02/16/17 05:39 Notes: The patient is a 66-year-old female, PMHx prior CVA, TBI, advanced dementia, frequent falls, presents from [facility] by EMS where she fell and hit the right side of her head while she is getting out of bed. Patient is at baseline, according to EMS and correction records. She is not having any pain and does not have any other injuries. Not on any blood thinners. TRAVEL OUTSIDE OF THE [place] IN LAST 30 DAYS: No - Related Data Allergies/Adverse Reactions: No Known Allergies Allergy (Verified 01/19/17 19:38) Past Medical History - General Information source: Patient, Emergency Med Personnel - Social History Smoking Status: Unknown if Ever Smoked Chew tobacco use (# tins/day): No Frequency of alcohol use: None Drug Abuse: None Family History: Reviewed & Not Pertinent Patient has suicidal ideation: No Patient has homicidal ideation: No Renal/ Medical History: Denies: Hx Peritoneal Dialysis Psychiatric Medical History: Reports: Hx Depression - Immunizations Hx Diphtheria, Pertussis, Tetanus Vaccination: Yes Review of Systems - Review of Systems Notes: REVIEW OF SYSTEMS: CONSTITUTIONAL: -fevers, -chills EENT: -eye pain, -difficulty swallowing, -nasal congestion CARDIOVASCULAR:-chest pain, -syncope. RESPIRATORY: -cough, -SOB GASTROINTESTINAL: -abdominal pain, - nausea, -vomiting, -diarrhea GENITOURINARY: -dysuria, -hematuria MUSCULOSKELETAL: -back pain, -neck pain SKIN: -rash or skin lesions. HEMATOLOGIC: -easy bruising or bleeding. LYMPHATIC: -swollen, enlarged glands. NEUROLOGICAL: -altered mental status or loss of consciousness, -headache, - neurologic symptoms PSYCHIATRIC: -anxiety, -depression. ALL OTHER SYSTEMS REVIEWED AND NEGATIVE. Physical Exam - Vital signs Vitals: Temp Pulse Resp BP Pulse Ox 98.1 F 86 16 163/69 H 97 02/16/17 05:38 02/16/17 05:38 02/16/17 05:38 02/16/17 05:38 02/16/17 05:38 - Notes Notes: PHYSICAL EXAMINATION: GENERAL: Well-appearing, well-nourished and in no acute distress. HEAD: Small right parietal contusion, normocephalic. EYES: Pupils equal round and reactive to light, extraocular movements intact, sclera anicteric, conjunctiva are normal. ENT: nares patent, oropharynx clear without exudates. Moist mucous membranes. NECK: Normal range of motion, supple without lymphadenopathy LUNGS: Breath sounds clear to auscultation bilaterally and equal. No wheezes rales or rhonchi. HEART: Regular rate and rhythm without murmurs ABDOMEN: Soft, nontender, normoactive bowel sounds. No guarding, no rebound. No masses appreciated. EXTREMITIES: Normal range of motion, no pitting or edema. No cyanosis. NEUROLOGICAL: Cranial nerves grossly intact. Moving all 4 extremities. AAOx3. PSYCH: Normal mood, normal affect. SKIN: Warm, Dry, normal turgor, no rashes or lesions noted. Course - Re-evaluation Re-evalutation: Patient with mechanical fall after falling out of bed earlier today at [facility]. She has had multiple episodes of this. Her CAT scan today does not show any acute abnormalities and she is at baseline, according to correction records and prior ER records. Will discharge patient back to the correction with follow-up at her neurologist in [place]. - Vital Signs Vital signs: Temp Pulse Resp BP Pulse Ox 98.1 F 86 16 163/69 H 97 02/16/17 05:38 02/16/17 05:38 02/16/17 05:38 02/16/17 05:38 02/16/17 05:38 - Diagnostic Test Radiology reviewed: Image reviewed, Reports reviewed Radiology results interpreted by me: CT Head: NAD Discharge - Discharge Clinical Impression: Head injury Qualifiers: Encounter type: initial encounter Qualified Code(s): S09.90XA - Unspecified injury of head, initial encounter Condition: Stable Disposition: HOME, SELF-CARE Additional Instructions: Your CAT scan did not show any acute abnormalities today. Head Injury Your examination shows no evidence of brain injury. You can therefore be safely observed at home. Give clear liquids only for the first eight hours. Acetaminophen or ibuprofen can safely be given for pain. Follow the directions on the bottle. Do not give any medication that may alter her/his level of alertness. Limit activity for the first 24 hours -- bed rest is advisable at first. Several times during the first 24 hours, check the patient to see if the pupils are equal in size to each other, that the patient is easily arousable, and responds normally. Contact your doctor or go to the hospital if any of the following things occur: Persistent or projectile vomiting, a seizure, confusion , unequal pupil size, difficulty in arousing the patient, worsening or continued headache, or failure to improve as expected. Head Injury Precautions At this point, there is no evidence that your head injury is serious. Observation is necessary, however. Take only clear liquids for the first few hours, unless told otherwise by the doctor. If no pain medication was prescribed, you may take acetaminophen according to the directions on the bottle. Do not take any medication that may alter your level of alertness (unless you've discussed it with the doctor first) . Limit activity for the first 24 hours. Bed rest is best. During the first 24 hours, check to see approximately every two to three hours that the patient is easily arousable, responds normally, and can perform common tasks such as walking without difficulty. Contact your doctor or go to the hospital if any of the following things occur: Persistent vomiting, difficulty in arousing the patient, worsening or continued headache, or failure to improve as expected. Head injuries can cause symptoms that persist for a few days or even a few weeks. Forms: Elevated Blood Pressure
[2017-02-16 08:08] VITALS: BP 162/80
== END 2017-02-16 08:00 | disposition home or self-care (01) ==
LOC: ER 05:09
DX: S00.03XA Contusion of scalp, initial encounter (principal); W06.XXXA Fall from bed, initial encounter; Y93.89 Activity, other specified; Y92.122 Bedroom in nursing home as the place of occurrence of the external cause
CPT/HCPCS: 70450; 99284

== ENCOUNTER 2017-02-27 08:30 | Emergency (ER) | payer MEDICARE, OTHER ==
--- NOTE | 2017-02-27 08:59 | ER Document Report ---
ED General - General Mode of Arrival: Ambulatory Information source: Patient TRAVEL OUTSIDE OF THE [place] IN LAST 30 DAYS: No <SHIRA FERREIRA - Last Filed: 02/27/17 15:53> <LEI LITTLE - Last Filed: 02/27/17 17:25> - General Chief Complaint: Fall Injury Stated Complaint: WEAKNESS Time Seen by Provider: 02/27/17 08:48 Notes: Patient is a 66 year old female with a history of advanced dementia and frequent falls presents to the emergency department via EMS due to a fall. Patient is a poor historian due to her dementia and therefore unreliable however , patient states that she fell this morning and hit the left side of her face. Patient states that her head and back hurts. Patient denies any other pain. (SHIRA FERREIRA) - Related Data Allergies/Adverse Reactions: No Known Allergies Allergy (Verified 01/19/17 19:38) Past Medical History - General Information source: Patient - Social History Smoking Status: Never Smoker Cigarette use (# per day): No Chew tobacco use (# tins/day): No Smoking Education Provided: No Frequency of alcohol use: None Drug Abuse: None Family History: Reviewed & Not Pertinent - Past Medical History Cardiac Medical History: Reports: Hx Hypertension Endocrine Medical History: Reports: Hx Diabetes Mellitus Type 2 Psychiatric Medical History: Reports: Hx Depression - Immunizations Hx Diphtheria, Pertussis, Tetanus Vaccination: Yes <SHIRA FERREIRA - Last Filed: 02/27/17 15:53> Review of Systems - Review of Systems Constitutional: No symptoms reported EENT: No symptoms reported Cardiovascular: No symptoms reported Respiratory: No symptoms reported Gastrointestinal: No symptoms reported Genitourinary: No symptoms reported Female Genitourinary: No symptoms reported Musculoskeletal: See HPI, Back pain Skin: No symptoms reported Hematologic/Lymphatic: No symptoms reported Neurological/Psychological: No symptoms reported -: Yes All other systems reviewed and negative <SHIRA FERREIRA - Last Filed: 02/27/17 15:53> Physical Exam <SHIRA FERREIRA - Last Filed: 02/27/17 15:53> <LEI LITTLE - Last Filed: 02/27/17 17:25> - Vital signs Vitals: Temp Pulse BP Pulse Ox 98.5 F 87 149/72 H 100 02/27/17 08:38 02/27/17 08:38 02/27/17 08:38 02/27/17 08:38 - Notes Notes: GENERAL: Alert, interacts well. No acute distress. HEAD: Hematoma on the left side of face. EYES: Pupils equal, round, and reactive to light. Extraocular movements intact. ENT: Abrasions across left ear.Oral mucosa moist, tongue midline. NECK: Full range of motion. Supple. Trachea midline. LUNGS: Clear to auscultation bilaterally, no wheezes, rales, or rhonchi. No respiratory distress. HEART: Regular rate and rhythm. No murmurs, gallops, or rubs. ABDOMEN: Soft, non-tender. Non-distended. Bowel sounds present in all 4 quadrants. EXTREMITIES: Spontaneous movement to LE, more so left leg. No tenderness to palpation. No cyanosis. NEUROLOGICAL: Alert and oriented x3. Normal speech. PSYCH: Normal affect, normal mood. SKIN: Warm, dry, normal turgor. No rashes or lesions noted. BACK: No step-offs, deformities, abrasions, or tenderness to palpation across the back. (SHIRA FERREIRA) Correction to exam she is alert but she is not oriented to person place or time , she is disoriented consistent with her dementia. Skin exam is inaccurate it says no rashes or lesions, she does have an abrasion across her left ear and a hematoma to the left side of the face. Neck has no midline bony tenderness to palpation, no step-offs or deformities. (LEI LITTLE) Course - Laboratory Result Diagrams: 02/27/17 10:30 02/27/17 10:30 - Consults Dr. Grimaldo Time consulted: 10:48 - Dr. Grimaldo stated to not place a collar on the patient unless she is in obvious pain. <SHIRA FERREIRA - Last Filed: 02/27/17 15:53> - Laboratory Result Diagrams: 02/27/17 10:30 02/27/17 10:30 <LEI LITTLE - Last Filed: 02/27/17 17:25> - Re-evaluation Re-evalutation: 02/27/17 11:56 CBC shows slight leukocytosis, hemoglobin shows anemia consistent with age with hemoglobin 11.4, coags normal, CMP grossly unremarkable, slightly elevated glucose, CT of the cervical spine shows mildly displaced dorsal spinous process fracture of C6. Head CT does not show any bleed or fracture, lumbar and thoracic x-rays do not show any fracture dislocation. Patient moving her neck without difficulty, no pain. Discussed with Dr. Smallwood neurosurgeon master sonar technician from [facility], advised that unless the patient is having obvious pain he would not use a cervical collar due to the increased fall risk particularly in the older demented population and an increased risk of aspiration. Patient does not have any pain at this time in her neck. No cervical collar will be used. Patient will be discharged back to the care home. (LEI LITTLE) - Vital Signs Vital signs: Temp Pulse Resp BP Pulse Ox 98.5 F 87 149/72 H 100 02/27/17 08:38 02/27/17 08:38 02/27/17 08:38 02/27/17 08:38 - Laboratory Laboratory results interpreted by me: 02/27/17 02/27/17 10:30 10:30 WBC 10.7 H Hgb 11.4 L Hct 33.8 L Glucose 129 H Discharge <SHIRA FERREIRA - Last Filed: 02/27/17 15:53> <LEI LITTLE - Last Filed: 02/27/17 17:25> - Discharge Clinical Impression: Fall at care home Qualifiers: Encounter type: initial encounter Qualified Code(s): W19.XXXA - Unspecified fall, initial encounter Hypertension Qualifiers: Hypertension type: essential hypertension Qualified Code(s): I10 - Essential ( primary) hypertension Condition: Stable Disposition: HOME-SNF (ED ONLY) Additional Instructions: There is a nondisplaced dorsal spinous process fracture of C6. This does not need surgery. This does not need a cervical collar as it is not causing her any pain. There is no risk of nerve damage from this fracture. There was no sign of broken bone in her back. There was no sign of bleeding in her brain. Scribe Attestation: 02/27/17 17:25 I personally performed the services described in the documentation, reviewed and edited the documentation which was dictated to the scribe in my presence, and it accurately records my words and actions. (LEI LITTLE) Scribe Documentation - Scribe Written by Tavoibrekha:: Thuan Nj, 02/27/2017 09:07 acting as scribe for :: Cody <SHIRA FERREIRA - Last Filed: 02/27/17 15:53>
[2017-02-27 09:00] VITALS: BP 149/72
--- NOTE | 2017-02-27 09:26 | RADIOLOGY REPORT (SQ) ---
EXAM DESCRIPTION: CT HEAD WITHOUT COMPLETED DATE/TIME: 02/27/2017 9:15 am REASON FOR STUDY: fall, hit head, dementia COMPARISON: 02/16/2017 TECHNIQUE: Axial images acquired through the brain without intravenous contrast. Images reviewed wi th bone, brain and subdural windows. Images stored on PACS. All CT scanners at this facility use dose modulation, iterative reconstruction, and/or weight based d osing when appropriate to reduce radiation dose to as low as reasonably achievable (ALARA). [facility]: Dose Right [facility]: CareDose [facility]: Dose Right [facility]: Teradose 4D [facility]: [email or web address] RADIATION DOSE: CT Rad equipment meets quality standard of care and radiation dose reduction techniq ues were employed. CTDIvol: 64.6 mGy. DLP: 1034 mGy-cm.mGy. LIMITATIONS: None. FINDINGS: VENTRICLES: Prominent. CEREBRUM: No masses. No hemorrhage. No midline shift. Areas of low density in the white matter mos t likely due to chronic micro-vascular ischemic change. No evidence for acute infarction. CEREBELLUM: No masses. No hemorrhage. No alteration of density. No evidence for acute infarction. EXTRAAXIAL SPACES: Age-related involutional change. No fluid collections. No masses. ORBITS AND GLOBE: No intra- or extraconal masses. Normal contour of globe without masses. CALVARIUM: No fracture. PARANASAL SINUSES: No fluid or mucosal thickening. SOFT TISSUES: Left temporal and parietal scalp hematomas. OTHER: No other significant finding. IMPRESSION: No acute abnormality in the brain. EVIDENCE OF ACUTE STROKE: NO. TECHNICAL DOCUMENTATION: JOB ID: [id number] Quality ID # [id number]: Final reports with documentation of one or more dose reduction techniques (e.g., Au tomated exposure control, adjustment of the mA and/or kV according to patient size, use of iterative reconstruction technique) 2010 [employer]- All Rights Reserved
--- NOTE | 2017-02-27 09:48 | RADIOLOGY REPORT (SQ) ---
EXAM DESCRIPTION: CT CERVICAL SPINE WITHOUT COMPLETED DATE/TIME: 02/27/2017 9:15 am REASON FOR STUDY: fall, hit head, dementia COMPARISON: 09/14/2007 TECHNIQUE: Axial images acquired through the cervical spine without intravenous contrast. Images re viewed with lung, soft tissue and bone windows. Reconstructed coronal and sagittal MPR images review ed. Images stored on PACS. All CT scanners at this facility use dose modulation, iterative reconstruction, and/or weight based d osing when appropriate to reduce radiation dose to as low as reasonably achievable (ALARA). [facility]: Dose Right [facility]: CareDose [facility]: Dose Right [facility]: Teradose 4D [facility]: [employer] RADIATION DOSE: CT Rad equipment meets quality standard of care and radiation dose reduction techniq ues were employed. CTDIvol: 10.2 mGy. DLP: 172 mGy-cm. mGy. LIMITATIONS: Motion. FINDINGS: There is an acute minimally displaced fracture of the dorsal spinous process of C6. There is a healed fracture of the odontoid. There has been posterior fusion from C2 through C4. Ins trumentation is intact. Alignment is anatomic. Chronic spinal stenosis at T1-2. IMPRESSION: Dorsal spinous process fracture C6. TECHNICAL DOCUMENTATION: JOB ID: [id number] Quality ID # [id number]: Final reports with documentation of one or more dose reduction techniques (e.g., Au tomated exposure control, adjustment of the mA and/or kV according to patient size, use of iterative reconstruction technique) 2010 [employer]- All Rights Reserved
--- NOTE | 2017-02-27 09:59 | RADIOLOGY REPORT (SQ) ---
EXAM DESCRIPTION: L SPINE WHOLE COMPLETED DATE/TIME: 02/27/2017 9:28 am REASON FOR STUDY: fall, hit head, dementia, c/o back pain COMPARISON: None. NUMBER OF VIEWS: Four views TECHNIQUE: AP, lateral, right and left oblique, radiographic images acquired of the lumbar spine. LIMITATIONS: None. FINDINGS: MINERALIZATION: Osteopenic SEGMENTATION: Normal. No transitional anatomy. ALIGNMENT: Normal. VERTEBRAE: Maintained height. No fracture or worrisome bone lesion. DISCS: Diffuse disc space loss of height with anterior and lateral osteophyte formation. Relative sp aring of L4-5 and L5-S1. POSTERIOR ELEMENTS: Diffuse facet arthropathy with joint space narrowing and bony spurring most prono unced at L4-5 and L5-S1 HARDWARE: None in the spine. PARASPINAL SOFT TISSUES: Normal. PELVIS: Not included in the field of view. SI joints unremarkable OTHER: No other significant finding. IMPRESSION: No gross acute fracture TECHNICAL DOCUMENTATION: JOB ID: [id number] [employer]- All Rights Reserved
--- NOTE | 2017-02-27 10:01 | RADIOLOGY REPORT (SQ) ---
EXAM DESCRIPTION: T SPINE AP/LAT COMPLETED DATE/TIME: 02/27/2017 9:29 am REASON FOR STUDY: fall, hit head, dementia, c/o back pain COMPARISON: Lumbar spine films same date NUMBER OF VIEWS: Two views. TECHNIQUE: AP and lateral radiographic images acquired of the thoracic spine. LIMITATIONS: None. FINDINGS: MINERALIZATION: Osteopenic ALIGNMENT: Normal. No scoliosis. VERTEBRAE: No fracture or bone lesion. Maintained height, normal segmentation. DISCS: Disc space loss of height with anterior osteophyte formation at T12-L1 and L1-2 HARDWARE: None in the spine. MEDIASTINUM AND SOFT TISSUES: Normal heart size and aortic contour. No soft tissue abnormality. VISUALIZED LUNG NEWBY: Clear. OTHER: No other significant finding. IMPRESSION: No acute finding TECHNICAL DOCUMENTATION: JOB ID: [id number] [employer]- All Rights Reserved
[2017-02-27 10:41] LABS: ABSOLUTE BASOPHILS # (AUTO) 0.1 10^3/uL (0.0-0.2); ABSOLUTE EOSINOPHILS # (AUTO) 0.2 10^3/uL (0.0-0.6); ABSOLUTE LYMPHOCYTES (AUTO) 2.5 10^3/uL (0.5-4.7); ABSOLUTE MONOCYTES (AUTO) 0.8 10^3/uL (0.1-1.4); ABSOLUTE NEUT (AUTO) 7.2 10^3/uL (1.7-8.2); BASOPHILS % (AUTO) 0.6 % (0-2); EOSINOPHILS % (AUTO) 2.1 % (0-6); HEMATOCRIT 33.8 % (36.0-47.0); HEMOGLOBIN 11.4 g/dL (12.0-15.5); LYMPHOCYTES % (AUTO) 23.1 % (13-45); MEAN CORPUSCULAR HEMOGLOBIN 29.4 pg (27.0-33.4); MEAN CORPUSCULAR HGB CONC 33.7 g/dL (32.0-36.0); MEAN CORPUSCULAR VOLUME 87 fl (80-97); MONOCYTES % (AUTO) 7.3 % (3-13); PLATELET COUNT 449 10^3/uL (150-450); RED BLOOD COUNT 3.88 10^6/uL (3.72-5.28); RED CELL DISTRIBUTION WIDTH 13.6 % (11.5-14.0); SEGMENTED NEUTROPHILS % (AUTO) 66.9 % (42-78); TOTAL CELLS COUNTED % (AUTO) 100 %; WHITE BLOOD COUNT 10.7 10^3/uL (4.0-10.5)
[2017-02-27 10:46] LABS: INTERNATIONAL RATION (INR) 0.88; PROTHROMBIN TIME 12.5 SEC (11.4-15.4)
[2017-02-27 11:07] LABS: ALANINE AMINOTRANSFERASE 33 U/L (9-52); ALBUMIN 4.2 g/dL (3.5-5.0); ALKALINE PHOSPHATASE 117 U/L (38-126); ANION GAP 10 (5-19); ASPARTATE AMINO TRANSFERASE 25 U/L (14-36); BILIRUBIN,DIRECT 0.1 mg/dL (0.0-0.4); BILIRUBIN,TOTAL 0.4 mg/dL (0.2-1.3); BLOOD UREA NITROGEN 16 mg/dL (7-20); CALCIUM 9.6 mg/dL (8.4-10.2); CARBON DIOXIDE 28 mmol/L (22-30); CHLORIDE 103 mmol/L (98-107); GLUCOSE 129 mg/dL (75-110); TOTAL PROTEIN 6.9 g/dL (6.3-8.2)
== END 2017-02-27 12:35 ==
LOC: ER 08:30
DX: I10 Essential (primary) hypertension (principal); R53.1 Weakness; F03.90 Unspecified dementia, unspecified severity, without behavioral disturbance, psychotic disturbance, mood disturbance, and anxiety; R51 Headache; M54.9 Dorsalgia, unspecified; W19.XXXA Unspecified fall, initial encounter
CPT/HCPCS: 36415; 70450; 72070; 72110; 72125; 80053; 85025; 85610; 99285

== ENCOUNTER 2017-03-13 00:06 | Emergency (ER) | payer MEDICARE, OTHER ==
--- NOTE | 2017-03-13 01:35 | ER Document Report ---
ED Fall - General Mode of Arrival: Medic Information source: Patient, Emergency Med Personnel, [facility] Records TRAVEL OUTSIDE OF THE [place] IN LAST 30 DAYS: No - HPI Patient complains to provider of: Fall Occurred: This evening Where: [facility] [place] Location of injury/pain: Other - see notes above Prehospital interventions: C-collar, Other - see notes above - General Chief Complaint: Fall Injury Stated Complaint: FALL/FACIAL INJURY Time Seen by Provider: 03/13/17 01:29 Notes: 66 year old female with history of dementia and frequently falling presents to the ED via EMS after being found on the floor of her room at [facility] with swelling to the left cheek earlier this evening. Patient was in the ED 1.5 weeks ago secondary to a fall where she suffered a non-surgical cervical spine fracture. A comprehensive HPI is unobtainable secondary to the patient's dementia. (KITA GALAN) - Related data Allergies/Adverse Reactions: acetaminophen [From Percocet] Allergy (Verified 03/13/17 00:37) oxycodone [From Percocet] Allergy (Verified 03/13/17 00:37) Past Medical History - General Information source: Patient - Social History Smoking Status: Unknown if Ever Smoked Family History: Reviewed & Not Pertinent Patient has suicidal ideation: No Patient has homicidal ideation: No - Past Medical History Cardiac Medical History: Reports: Hx Hypertension Endocrine Medical History: Reports: Hx Diabetes Mellitus Type 2 Renal/ Medical History: Denies: Hx Peritoneal Dialysis Psychiatric Medical History: Reports: Hx Dementia, Hx Depression - Immunizations Hx Diphtheria, Pertussis, Tetanus Vaccination: Yes Review of Systems - Review of Systems -: Yes ROS unobtainable due to patient's medical condition Musculoskeletal: See HPI, Other - left zygoma pain Physical Exam - Notes Notes: GENERAL: Alert. No acute distress. HEAD: Swelling to the left zygoma. Ecchymosis to right rosemary-orbital region and under right eye. EYES: Pupils equal, round, and reactive to light. Extraocular movements intact. ENT: Oral mucosa moist, tongue midline. NECK: Full range of motion. Supple. Trachea midline. LUNGS: Clear to auscultation bilaterally, no wheezes, rales, or rhonchi. No respiratory distress. HEART: Regular rate and rhythm. No murmurs, gallops, or rubs. ABDOMEN: Soft, non-tender. Non-distended. Bowel sounds present in all 4 quadrants. EXTREMITIES: Moves all 4 extremities spontaneously. No edema, radial pulses 2/4 bilaterally. No cyanosis. Ecchymosis to the left patella and lateral aspect of left knee. NEUROLOGICAL: Alert. Orientated to person, but not time or place. PSYCH: Normal affect, normal mood. SKIN: Warm and dry. (KITA GALAN) Course - Re-evaluation Re-evalutation: 03/13/17 02:39 CT scan of the head is negative, CT scan of the neck shows subacute fracture of the C6 spinous process which is unchanged in configuration. Patient has contusion to the left zygoma without any evidence of fracture. Patient will be discharged back to the senior living. She continues to have no pain despite the C6 fracture. There is no indication for cervical collar as this is a stable fracture. Discharged back to the senior living. (LEI LITTLE) Discharge - Discharge Clinical Impression: Subacute C6 fracture Fall at senior living Qualifiers: Encounter type: initial encounter Qualified Code(s): W19.XXXA - Unspecified fall, initial encounter Facial contusion Qualifiers: Encounter type: initial encounter Qualified Code(s): S00.83XA - Contusion of other part of head, initial encounter Condition: Stable Disposition: HOME, SELF-CARE Additional Instructions: There is no sign of bleeding in her brain, there is no sign of fracture to her face, there is no sign of new fracture to her neck. It shows the same fracture to the C6 spinous process that she had a week and a half ago. This does not need to be placed in a cervical collar. It does not need any follow-up. Scribe Attestation: 03/13/17 04:40 I personally performed the services described in the documentation, reviewed and edited the documentation which was dictated to the scribe in my presence, and it accurately records my words and actions. (LEI LITTLE) Scribe Documentation - Scribe Written by Thuan:: Thuan Arango, 03/13/2017 0151 acting as scribe for :: Cody
--- NOTE | 2017-03-13 02:16 | RADIOLOGY REPORT (SQ) ---
EXAM DESCRIPTION: CT HEAD WITHOUT CLINICAL HISTORY: fall, confused, L cheek swelling COMPARISON: 02/27/2017 TECHNIQUE: Axial CT of the head obtained from the skull apex to the skull base without contrast. FINDINGS: No acute intracranial hemorrhage identified. No mass, mass effect, shift of the midline, abnormal extra-axial fluid collection or CT evidence of acute ischemic change identified. The ventricular system and sulcal spaces are mildly enlarged compatible with mild cerebral atrophy. Scattered areas of hypodensity throughout the supratentorial white matter are nonspecific and may be related to chronic small vessel ischemic change. Physiologic calcification of basal ganglia. The visualized paranasal sinuses and the mastoids are clear. No skull fracture identified. Visualized orbits and globes are unremarkable. Atherosclerotic calcification of the intracranial internal carotid arteries. Partial visualization of postoperative change of the cervical spine. Contusion in the left posterior scalp subcutaneous soft tissues. Contusion in the left perizygomatic subcutaneous soft tissues. DLP:1106.28 mGy-cm IMPRESSION: 1. No acute intracranial abnormality by CT criteria. This exam was performed according to our departmental dose-optimization program, which includes automated exposure control, adjustment of the mA and/or kV according to patient size and/or use of iterative reconstruction technique.
--- NOTE | 2017-03-13 02:21 | RADIOLOGY REPORT (SQ) ---
EXAM DESCRIPTION: CT CERVICAL SPINE WITHOUT CLINICAL HISTORY: fall, confused COMPARISON: 02/27/2017 TECHNIQUE: Axial CT of the cervical spine obtained without contrast. FINDINGS: Posterior darby and screw fixation at C1-C4. No hardware abnormalities identified. The atlantoaxial, atlantodental, and occipitoatlantal intervals are preserved. Likely remote healed fracture of the odontoid process. Subacute fracture of the C6 spinous process is unchanged in configuration. No acute fracture identified. Vertebral body height preserved. Prevertebral soft tissues are unremarkable. Mild facet arthropathy throughout the cervical spine with endplate spondylosis and uncovertebral spurring. Unchanged narrowing of the spinal canal at T1/2 on the basis of posterior osteophytes. No significant neural foraminal narrowing. Intervertebral disc height relatively well-preserved. Visualized skull base is intact. No fracture of the visualized facial bones. Visualized mastoid air cells and paranasal sinuses are well aerated. Visualized thyroid is unremarkable. No cervical lymphadenopathy. No pneumothorax in the visualized lung apices. DLP: 189.00 mGy-cm IMPRESSION: 1. No acute fracture or subluxation of the cervical spine. No significant change in appearance from comparison study 2. Subacute fracture of the C6 spinous process is stable. This exam was performed according to our departmental dose-optimization program, which includes automated exposure control, adjustment of the mA and/or kV according to patient size and/or use of iterative reconstruction technique.
== END 2017-03-13 01:35 | disposition home or self-care (01) ==
LOC: ER 00:06
DX: S00.83XA Contusion of other part of head, initial encounter (principal); S12.500A Unspecified displaced fracture of sixth cervical vertebra, initial encounter for closed fracture; W19.XXXA Unspecified fall, initial encounter; Z91.81 History of falling; Y92.129 Unspecified place in nursing home as the place of occurrence of the external cause; Z88.6 Allergy status to analgesic agent; I10 Essential (primary) hypertension; E11.9 Type 2 diabetes mellitus without complications; F03.90 Unspecified dementia, unspecified severity, without behavioral disturbance, psychotic disturbance, mood disturbance, and anxiety
CPT/HCPCS: 70450; 72125; 99284

== ENCOUNTER 2017-05-01 10:09 | Emergency (ER) | payer MEDICARE, OTHER ==
[2017-05-01 10:50] LABS: ABSOLUTE LYMPHOCYTES (AUTO) 0.8 10^3/uL (0.5-4.7); ABSOLUTE MONOCYTES (AUTO) 0.6 10^3/uL (0.1-1.4); ABSOLUTE NEUT (AUTO) 5.8 10^3/uL (1.7-8.2); BASOPHILS % (AUTO) 0.4 % (0-2); HEMATOCRIT 40.4 % (36.0-47.0); HEMOGLOBIN 13.5 g/dL (12.0-15.5); LYMPHOCYTES % (AUTO) 11.1 % (13-45); MEAN CORPUSCULAR HEMOGLOBIN 28.9 pg (27.0-33.4); MEAN CORPUSCULAR HGB CONC 33.5 g/dL (32.0-36.0); MEAN CORPUSCULAR VOLUME 86 fl (80-97); MONOCYTES % (AUTO) 8.1 % (3-13); PLATELET COUNT 314 10^3/uL (150-450); RED BLOOD COUNT 4.68 10^6/uL (3.72-5.28); RED CELL DISTRIBUTION WIDTH 13.5 % (11.5-14.0); SEGMENTED NEUTROPHILS % (AUTO) 80.4 % (42-78); TOTAL CELLS COUNTED % (AUTO) 100 %; WHITE BLOOD COUNT 7.3 10^3/uL (4.0-10.5)
[2017-05-01 10:55] LABS: INTERNATIONAL RATION (INR) 0.94; PROTHROMBIN TIME 13.2 SEC (11.4-15.4)
[2017-05-01 10:57] LABS: VENOUS BLOOD BASE EXCESS -0.7 mmol/L; VENOUS BLOOD HCO3 23.3 mmol/L (20-32); VENOUS BLOOD PCO2 36.3 mmHg (35-63); VENOUS BLOOD PH 7.43 (7.30-7.42)
[2017-05-01 11:15] LABS: ALANINE AMINOTRANSFERASE 34 U/L (9-52); ALBUMIN 4.3 g/dL (3.5-5.0); ALKALINE PHOSPHATASE 93 U/L (38-126); ANION GAP 16 (5-19); ASPARTATE AMINO TRANSFERASE 22 U/L (14-36); BILIRUBIN,DIRECT 0.4 mg/dL (0.0-0.4); BILIRUBIN,TOTAL 0.5 mg/dL (0.2-1.3); BLOOD UREA NITROGEN 24 mg/dL (7-20); CALCIUM 9.3 mg/dL (8.4-10.2); CARBON DIOXIDE 22 mmol/L (22-30); CHLORIDE 103 mmol/L (98-107); GLUCOSE 160 mg/dL (75-110); POTASSIUM 3.9 mmol/L (3.6-5.0); SODIUM 140.5 mmol/L (137-145)
[2017-05-01] MEDS ORDERED: CEFTRIAXONE INJ 1000 MG VIAL IV ONE (11:45)
[2017-05-01] MEDS ORDERED: NORMAL SALINE 1000 ML 1,000 ML IV ONE ×2 (11:45→13:05)
--- NOTE | 2017-05-01 12:26 | RADIOLOGY REPORT (SQ) ---
EXAM DESCRIPTION: CHEST SINGLE VIEW COMPLETED DATE/TIME: 05/01/2017 12:18 pm REASON FOR STUDY: fever COMPARISON: 12/08/2006. EXAM PARAMETERS: NUMBER OF VIEWS: One view. TECHNIQUE: Single frontal radiographic view of the chest acquired. RADIATION DOSE: NA LIMITATIONS: None. FINDINGS: LUNGS AND PLEURA: No opacities, masses or pneumothorax. No pleural effusion. MEDIASTINUM AND HILAR STRUCTURES: No masses. Contour normal. HEART AND VASCULAR STRUCTURES: Heart normal in size. Normal vasculature. BONES: No acute findings. HARDWARE: None in the chest. OTHER: No other significant finding. IMPRESSION: NO ACUTE RADIOGRAPHIC FINDING IN THE CHEST. TECHNICAL DOCUMENTATION: JOB ID: [id number] [employer]- All Rights Reserved Reading location - IP/workstation name: [email or web address]
[2017-05-01 12:31] LABS: APPEARANCE,URINE CLEAR; BILIRUBIN,URINE NEGATIVE (NEGATIVE); COLOR,URINE YELLOW; GLUCOSE, URINE 50 mg/dL (NEGATIVE); KETONES,URINE 80 mg/dL (NEGATIVE); LEUKOCYTE ESTERASE,URINE NEGATIVE (NEGATIVE); NITRITE,URINE NEGATIVE (NEGATIVE); PROTEIN,URINE >=500 mg/dL (NEGATIVE); URINE SPECIFIC GRAVITY 1.024; UROBILINOGEN,URINE NEGATIVE mg/dL (<2.0)
--- NOTE | 2017-05-01 13:02 | EKG REPORT ---
SEVERITY:- ABNORMAL ECG - SINUS RHYTHM SUPRAVENTRICULAR BIGEMINY ABNORMAL T, CONSIDER ISCHEMIA, ANT-LAT LEADS , NEW, SINCE 01/19/17 EKG BORDERLINE PROLONGED QT INTERVAL CLINICAL COREELATION NEEDED. : Confirmed by: Jose Elias Smith MD 01-May-2017 13:01:46
[2017-05-01] MEDS ORDERED: LIDOCAINE 1% INJ-PF (10 MG/ML) 30 ML SDV INJ ONE (13:05)
--- NOTE | 2017-05-01 13:57 | ER Document Report ---
ED General - General Chief Complaint: Altered Mental Status Stated Complaint: ALTERED MENTAL STATUS Time Seen by Provider: 05/01/17 11:43 Notes: The patient is a 66-year-old female, past medical history suprabulbar palsy, prior UTIs, presents from home after she developed a fever of 102 earlier today and had worsening mental status. Her is at bedside patient has not been drinking much. She has home nursing [id number]. Patient received 650 mg of rectal Tylenol by EMS prior to arrival. Unable to provide any additional history. TRAVEL OUTSIDE OF THE [place] IN LAST 30 DAYS: No - Related Data Allergies/Adverse Reactions: acetaminophen [From Percocet] Allergy (Verified 03/13/17 00:37) oxycodone [From Percocet] Allergy (Verified 03/13/17 00:37) Past Medical History - General Information source: Patient - Social History Smoking Status: Never Smoker Chew tobacco use (# tins/day): No Family History: Reviewed & Not Pertinent Patient has suicidal ideation: No Patient has homicidal ideation: No - Past Medical History Cardiac Medical History: Reports: Hx Hypertension Endocrine Medical History: Reports: Hx Diabetes Mellitus Type 2 Renal/ Medical History: Denies: Hx Peritoneal Dialysis Psychiatric Medical History: Reports: Hx Dementia, Hx Depression - Immunizations Hx Diphtheria, Pertussis, Tetanus Vaccination: Yes Review of Systems - Review of Systems -: Yes ROS unobtainable due to patient's medical condition Physical Exam - Vital signs Vitals: Pulse Ox 96 05/01/17 10:21 - Notes Notes: PHYSICAL EXAMINATION: GENERAL: Chronically ill-appearing. HEAD: Atraumatic, normocephalic. EYES: Pupils equal round and reactive to light, extraocular movements intact, sclera anicteric, conjunctiva are normal. ENT: nares patent, oropharynx clear without exudates. Moist mucous membranes. NECK: Normal range of motion, supple without lymphadenopathy LUNGS: Breath sounds clear to auscultation bilaterally and equal. No wheezes rales or rhonchi. HEART: Regular rate and rhythm without murmurs ABDOMEN: Soft, nontender, normoactive bowel sounds. No guarding, no rebound. No masses appreciated. EXTREMITIES: Strong distal pulses. NEUROLOGICAL: No purposeful movements, no response to painful stimulation. SKIN: Warm, Dry, normal turgor, no rashes or lesions noted. Course - Re-evaluation Re-evalutation: Patient chronically ill with 1 day of fever. Chest x-ray does not show any signs of pneumonia, abdomen soft and nontender, urine does not show signs of a UTI and there are no rashes. Concern for meningitis due to worsening mental status and fever. Lumbar puncture performed with return of clear fluid and no signs of meningitis on lab analysis. Patient is remaining hemodynamically stable with normal blood pressure, heart rate and no respiratory distress. She does not have a leukocytosis and her lactate is normal. Instructed to continue Tylenol and Motrin, make sure she is staying hydrated and return to the ER for any worsening symptoms. - Vital Signs Vital signs: Temp Pulse Resp BP Pulse Ox 100.4 F 17 148/79 H 97 05/01/17 12:13 05/01/17 15:01 05/01/17 15:01 05/01/17 15:01 - Laboratory Result Diagrams: 05/01/17 09:54 05/01/17 09:54 Laboratory results interpreted by me: 05/01/17 05/01/17 05/01/17 09:54 09:54 10:30 Seg Neutrophils % 80.4 H Lymphocytes % 11.1 L VBG pH 7.43 H BUN 24 H Glucose 160 H POC Glucose Urine Protein Urine Glucose (UA) Urine Ketones Urine Ascorbic Acid CSF Glucose 05/01/17 05/01/17 05/01/17 11:16 12:10 14:15 Seg Neutrophils % Lymphocytes % VBG pH BUN Glucose POC Glucose 142 H Urine Protein >=500 H Urine Glucose (UA) 50 H Urine Ketones 80 H Urine Ascorbic Acid 20 H CSF Glucose 91 H - Diagnostic Test Radiology reviewed: Image reviewed, Reports reviewed Radiology results interpreted by me: CXR: NAD Procedures - Lumbar Puncture Lumbar puncture Time completed: 14:10 Consent obtained: Yes - Verbal consent from Lumbar puncture pre-procedure: Sterile PPE donned, Chloraprep applied, Sterile drapes applied Patient position: Lying Needle size: 22 Lumbar puncture location: L4-L5 Anesthetic type: 1% Lidocaine mL's of anesthetic: 3 Amount/type of drainage: 4 mL clear drainage Number of attempts: 1 Complications: No Discharge - Discharge Clinical Impression: Fever Qualifiers: Fever type: unspecified Qualified Code(s): R50.9 - Fever, unspecified Condition: Stable Disposition: HOME, SELF-CARE Additional Instructions: There are no signs of a UTI, pneumonia, meningitis or any other source for a bacterial infection. You may alternate Tylenol 650 mg every 4 hours and Motrin 600 mg every 6 hours as needed for fever control. If there are any worsening symptoms, return to the ER for further evaluation and treatment. FEVER: Fever is the body's reaction to infection. Fever can also occur with illnesses that create fever-producing substances in the body. By itself, fever is not harmful. It helps the body fight invading germs. We are more concerned with: (1) What's causing the fever? (2) How can we keep you more comfortable until the fever goes away? Early in an illness, symptoms are often so vague that a diagnosis can't be made. If the doctor hasn't identified a clear cause for your fever, you will probably develop new symptoms within the next two days. Contact the doctor if you develop severe worsening headache, rash, chest pain, cough with yellow or green sputum, difficulty breathing, abdominal pain, or other new symptoms. There is no reason to treat a fever if you're comfortable. If the fever is causing aches, headache, and fatigue, you can treat it with ibuprofen (Advil , Nuprin, etc) or acetaminophen (Tylenol). Follow the directions on the bottle. Get plenty of liquids (three quarts per day). Rest. Physical work or sports will raise the temperature higher and make you feel much worse. Dress lightly. If you're chilling, this means the temperature is trying to go higher. Take ibuprofen or acetaminophen. When you feel sweaty and "feverish" the temperature is coming down. If the fever doesn't go away within two days or if you become more ill, call the doctor or return at once for re-examination. NORMAL EXAM AND WORKUP: At this time, with the exception of fever, your examination and workup show no significant abnormality. No significant abnormal physical findings were noted. All laboratory, EKG, and imaging (x-ray, CT scans, ultrasound) studies that were ordered show no significant abnormality. Although your examination and all studies that were ordered showed no significant abnormal finding, there are no examinations and no studies that are 100% accurate. There is always the possibility that some abnormality could exist and not be detected with physical examination or within the limits and capabilities of laboratory and other studies. You should return or follow up as you were instructed on your visit today for further evaluation if your symptoms do not resolve. VIRAL SYNDROME: The physician has diagnosed a likely viral infection. Viruses not only cause "colds," but can cause many different symptoms including generalized aching, fever, headache, cough, diarrhea, nausea, vomiting, and fatigue. The treatment, for the most part, is simply relief of symptoms. This means that antibiotics are usually not given. Rest, fluids, pain medications and, occasionally, medication for the specific symptoms that are most bothersome will be prescribed. Use good handwashing to avoid passing the virus to others. Shared toys should be cleaned with disinfectant. Clean the toilets, sinks, and counter surfaces in bathrooms. Launder clothing in hot water. Contact the physician if you develop any new or unusual symptoms such as severe headache, stiff neck, high fever, chest pain, productive cough, or shortness of breath. You should be rechecked if you don't see marked improvement within seven to 10 days. USE OF ACETAMINOPHEN (Tylenol): Acetaminophen may be taken for pain relief or fever control. It's much safer than aspirin, offering a wider range of "safe" dosages. It is safe during . Some brand names are Tylenol, Panadol, Datril, Anacin 3, Tempra, and Liquiprin. Acetaminophen can be repeated every four hours. The following are maximum recommended dosages: WEIGHT Dose Drops Elixir Chewable( 80mg) (LBS.) drprs=droppers tsp=teaspoon 6 40 mg 0.4 ml (1/2) 6-11 80 mg 0.8 ml (full) tsp 1 tab 12-16 120 mg 1 1/2 drprs 3/4 tsp 1 1/2 tabs 17-23 160 mg 2 drprs 1 tsp 2 tabs 24-30 240 mg 3 drprs 1 1/2 tsp 3 tabs 30-35 320 mg 2 tsp 4 tabs 36-41 360 mg 2 1/4 tsp 4 1/2 tabs 42-47 400 mg 2 1/2 tsp 5 tabs 48-53 480 mg 3 tsp 6 tabs 54-59 520 mg 3 1/4 tsp 6 1/2 tabs 60-64 560 mg 3 1/2 tsp 7 tabs 65-70 600 mg 3 3/4 tsp 7 1/2 tabs 71-76 640 mg 4 tsp 8 tabs 77-82 720 mg 4 1/2 tsp 9 tabs 83-88 800 mg 5 tsp 10 tabs >89 pounds or adults 650 mg to 900 mg Acetaminophen can be repeated every four hours. Maximum dose not to exceed 4000 mg a day. These maximum recommended dosages are slightly higher than the dosages written on the product container, but these dosages are very safe and below the toxic dosage for acetaminophen. FOLLOW-UP CARE: If you have been referred to a physician for follow-up care, call the physician s office for an appointment as you were instructed or within the next two days. If you experience worsening or a significant change in your symptoms, notify the physician immediately or return to the Emergency Department at any time for re-evaluation. Forms: Elevated Blood Pressure Referrals: JUAN LUND MD [Primary Care Provider] - Follow up as needed
[2017-05-01 15:02] LABS: COLOR ALL TUBES COLORLESS; CSF TUBE NUMBER 1
[2017-05-01 15:03] LABS: APPEARANCE ALL TUBES CLEAR; CSF TOTAL VOLUME 2.5 CC; RED BLOOD CELL,CSF 29 /uL (0-10); VOLUME TUBE 1 0.5 CC; VOLUME TUBE 2 0.5 CC; VOLUME TUBE 3 0.5 CC; WHITE BLOOD CELL,CSF 0 /uL (0-5)
[2017-05-01 15:10] LABS: GLUCOSE,CSF 91 mg/dL (40-70); PROTEIN,CSF 47 mg/dL (12-60)
[2017-05-01 15:14] LABS: APPEARANCE ALL TUBES CLEAR; COLOR ALL TUBES COLORLESS; CSF TOTAL VOLUME 2.5 CC; CSF TUBE NUMBER 4; RED BLOOD CELL,CSF 0 /uL (0-10); VOLUME TUBE 1 0.5 CC; VOLUME TUBE 2 0.5 CC; VOLUME TUBE 3 0.5 CC; WHITE BLOOD CELL,CSF 0 /uL (0-5)
[2017-05-01 17:31] VITALS: BP 158/79
== END 2017-05-01 17:36 | disposition home or self-care (01) ==
LOC: ER 10:09
PROC: 009U3ZZ Drainage of Spinal Canal, Percutaneous Approach (ICD-10-PCS; principal; 2017-05-01)
DX: R50.9 Fever, unspecified (principal); R41.82 Altered mental status, unspecified; E11.9 Type 2 diabetes mellitus without complications; I10 Essential (primary) hypertension
CPT/HCPCS: 93005; 99285; 96361; 51701; 96365; 36415; 87040; 87070; 87086; 87205; 82962; 87252; 85025; 85610; 89050; 82945; 84157; 87077; 80053; 81001; 82803; 83605; 71045; 93010; 62272; J0696; J7030; 87186